=== PATIENT | female | born 1955 | race African-American/Black ===

== ENCOUNTER 2019-04-05 12:08 | Inpatient (IN) ==
[~2019-04-05 12:08] MED LIST: D50W SYRINGE IV ONE
[2019-04-05 13:23] LABS: BASO# 0.01 X1000 (0.0-0.2); BASO% 0.1 % (0.0-0.8); EOS# 0.07 X1000 (0.0-0.7); EOS% 0.8 % (0.0-10.0); HEMATOCRIT 39.1 % (37.0-47.0); HEMOGLOBIN 12.4 g/dL (12.0-16.0); IMM GRAN# 0.02 X1000 (0.0-0.04); IMM GRAN% 0.2 % (0.0-0.5); LYMPH# 1.46 X1000 (1.2-3.4); LYMPH% 17.5 % (20.5-51.1); MCH 29.9 PG (27-31); MCHC 31.7 g/dL (33-37); MCV 94.2 FL (81-99); MONO# 0.56 X1000 (0.11-0.59); MONO% 6.7 % (1.7-9.3); MPV 10.1 FL (7.4-10.4); NEUT# 6.24 X1000 (1.4-6.5); NEUT% 74.7 % (42.2-75.2); PLT 258 X1000 (130-400); RBC 4.15 XMIL (4.2-5.4); RDW 13.4 % (11.5-14.5); WBC 8.36 X1000 (4.8-10.8)
[2019-04-05 13:57] LABS: AGAP 11; ALBUMIN 4.3 g/dL (3.5-5.0); ALKALINE PHOSPHATASE 156 U/L (32-104); BUN 8 mg/dL (8-22); CALCIUM 9.2 mg/dL (8.8-10.2); CHLORIDE 104 mmol/L (98-107); COSMO 279; CREATININE 0.8 mg/dL (0.5-0.9); ESTIMATED GFR > 60; GLUCOSE 126 mg/dL (70-104); GOT 30 U/L (10-30); GPT 33 U/L (10-36); POTASSIUM 4.3 mmol/L (3.5-5.1); SODIUM 140 mmol/L (136-145); TCO2 25 mmol/L (25-35); TOTAL PROTEIN 7.6 g/dL (6.3-8.3)
[2019-04-05 14:22] LABS: BILIRUBIN URINE NEGATIVE (NEGATIVE); BLOOD URINE NEGATIVE (NEGATIVE); KETONE URINE NEGATIVE (NEGATIVE); LEUKOCYTES URINE 1+ (NEGATIVE); NITRITE URINE NEGATIVE (NEGATIVE); PROTEIN URINE NEGATIVE (NEGATIVE); SP GRAVITY URINE 1.005; UROBILINOGEN URINE NORMAL
[2019-04-05 14:23] LABS: CLARITY CLEAR (CLEAR); COLOR YELLOW
[2019-04-05 14:29] LABS: URINE BACTERIA 1+ /HFP; URINE CAST NONE SEEN /LPF; URINE CRYSTAL NONE SEEN /HPF; URINE EPITHELIAL CELLS >10 /HPF (<10); URINE SOURCE CLEAN CATCH; URINE YEAST NONE SEEN /HPF
[2019-04-05] MEDS ORDERED: ROCEPHIN 1 GM in NS 50 ML IV ONE (14:43)
--- NOTE | 2019-04-05 14:43 | PROVIDER DOCUMENTATION ---
This chart was entered by Chelsea Feldman Scribe, acting as scribe for Augustin Rosa MD. HPI-General Adult - General Stated Complaint: LOW BLOOD SUGAR Time Seen by Provider: 04/05/19 12:09 Source: patient, EMS ([facility]) Unable to obtain history due to:: altered Allergies/Adverse Reactions: Patient Allergies Allergy/AdvReac Type Severity Reaction Status Date / Time No Known Allergies Allergy Verified 01/18/18 18:17 Home Medications: Home Medication List Medication Instructions Recorded Confirmed Last Taken Type Famotidine 20 mg PO QAM 01/18/18 04/05/19 01/18/18 History Glimepiride 4 mg PO BID 01/18/18 04/05/19 01/18/18 History Insulin Glargine [Lantus] 40 unit SUBQ QAM 01/18/18 04/05/19 01/18/18 History Insulin Glargine [Lantus] 40 unit SUBQ QHS 01/18/18 04/05/19 01/23/18 21:00 History 40 UNIT Magnesium [Mag-Tab Sr] 84 mg PO QAM 01/18/18 04/05/19 01/18/18 History Omeprazole 40 mg PO QAM 01/18/18 04/05/19 01/18/18 History PRAVAstatin [Pravachol] 40 mg PO QHS 01/18/18 04/05/19 1 Day Ago History ~01/17/18 - History of Present Illness -Gen Adult Nature of Presenting Problems: 63 yobf presents to the ed via ems ([facility]) and sts call came in as unresponsive. when ems aos sts pt was "coming around" ems sts initial FSBG 42 was given oral glucose and ems sts second check was 76. ems sts pt was given peanut butter at [facility] but unsure when adela to pt being unresponsive. pt on exam has FSBG less then 20. pt is slow to answer questions and is lethargic on exam. pt does sts she took her insulin this morning but did not eat breakfast. pt denies pain. per ems pt was brought to [facility] er yesterday for same complaint and dc this morning early. when checked did not see where pt was seen yesterday or dc this morning Location of Pain/Injury: reports: none Quality of Pain: reports: none Severity: reports: moderate Onset/Duration: reports: just prior to arrival Timing: reports: still present, improving (pt is lethargic and no longer unresponsive) Context/Activities at Onset: reports: light activity Modifying Factors: improves with: other (oral glucose) Associated Symptoms: reports: fatigue, malaise, weakness. denies: back/neck pa in, chest pain, headaches, nausea, shortness of breath, vomiting Similar Symptoms Previously?: Yes (IDDM) Recently seen or treated by another doctor?: Yes (seen in [facility] er yesterday per ems) - Diabetes Related Context Context: reports: low blood sugar, change in mental status, unresponsive Review of Systems - Adult - REVIEW OF SYSTEMS - ADULT Constitutional: reports: see HPI, kerwin Eyes: reports: no symptoms reported Ears, Nose, Mouth & Throat: reports: no symptoms reported Cardiovascular: denies: chest pain, palpitations Respiratory: denies: cough, shortness of breath, wheezing Gastrointestinal: denies: diarrhea, nausea, vomiting Genitourinary: reports: no symptoms reported Musculoskeletal: denies: back pain, neck pain Integumentary: reports: no symptoms reported Neurological: denies: dizziness/vertigo, headache/migraines Psychiatric: reports: no symptoms reported Endocrine: reports: no symptoms reported Hematologic/Lymphatic: reports: no symptoms reported Allergic/Immunologic: reports: no symptoms reported All Other Systems: Reviewed and Negative Past History - Adult - PAST MEDICAL HISTORY-ADULT Review of Records: reports: Old Records Reviewed, Nursing Assessment Review, Medications Reviewed, Social history reviewed & non-contributory. Major Childhood Illnesses: reports: denies history Cardiovascular: reports: HTN, hyperlipidemia Respiratory: reports: denies history Gastrointestinal: reports: GERD Obstetrical/Gynecological: reports: denies history Genitourinary: reports: denies history Musculoskeletal: reports: denies history Hand Dominance: Right Handed Neurological: reports: denies history Psychiatric: reports: denies history Endocrine/Immune: reports: Diabetes Diabetes Type: Type 2 Diabetes controlled by:: Insulin Dependent Other Conditions: reports: denies history - PRIOR SURGERIES/PROCEDURES Surgical/Procedure History: reports: reviewed, not pertinent - IMMUNIZATION STATUS Childhood Immunizations: See Nurse Assessment Flu Vaccine: See Nurse Assessment - FAMILY HISTORY Family History: reviewed, not pertinent - SOCIAL HISTORY Smoking: denies Substance Use: denies Living Situation: family Physical Exam-General - PHYSICAL EXAM-ADULT Initial Vital Signs Reviewed: Yes - CONSTITUTIONAL General Appearance: lethargic, slow to respond - EYES Eyes: PERRL/EOMI, pink conjunctivae - HEAD, EARS, NOSE, MOUTH & THROAT HENMT: moist mucous membranes - NECK Neck: full range of motion, normal inspection - RESPIRATORY Respiratory: chest non-tender, lungs clear, normal breath sounds - CARDIOVASCULAR Cardiovascular: normal peripheral pulses, regular rate, rhythm - CHEST (BREASTS) Chest/Breast: deferred - GASTROINTESTINAL (ABDOMEN) Abdominal Exam: normal bowel sounds, non tender, soft - GENITOURINARY Female Genitalia/Pelvic Exam: deferred Rectal Exam: deferred Hemoccult Exam: deferred - LYMPHATIC Lymphatic: no adenopathy - MUSCULOSKELETAL Back Exam: normal inspection, no CVA tenderness, no vertebral tenderness Extremity: normal inspection, pelvis stable - SKIN Integumentary: normal color, normal turgor, diaphoresis - PSYCHIATRIC Psych/Mental Status: other (pt when she wakes is a/o x3 but quickly goes back to sleep) Progress - PLAN OF CARE/RESULTS Progress/Plan/Lab Results: Orders Category Date Time Status FSBS [Finger Stick Blood Sugar (ED)] DIRECTED Care 04/05/19 12:05 Active CBC WITH ELECTRONIC DIFF [HEME] Stat Lab 04/05/19 12:05 Uncollected COMPREHENSIVE METABOLIC PANEL [CHEM] Stat Lab 04/05/19 12:[address] W/POSS RFLX CULT [URINALYSIS] Stat Lab 04/05/19 12:05 Uncollected Result Diagrams: 04/05/19 13:00 04/05/19 13:00 - REASSESSMENT Reassessment #1 Time Reassessed: 13:18 (pt is feeling much better and is a/o x4) Status: improving Reassessment Comment: pt has family at bedside Reassessment #2 Time Reassessed: 13:55 (FSBG 126) Status: improving - CONSULTS/PCP/HOSPITALIST Notification #1 *Consult/PCP/Hospitalist*: hospitalist dr kendall Time Discussed: 14:38 Consult Disposition: Admit Departure - Departure Date of Disposition Decision: 04/05/19 Time of Disposition Decision: 14:40 DIAGNOSIS: Hypoglycemia, UTI (urinary tract infection) Disposition: ADMITTED INPATIENT 09 Certified Medical Emergency: Emergent Condition: Stable Referrals and Follow-Ups: Bia Simmons [Primary Care Provider] - - Critical Care Note This patient required my direct & personal management of CC.: Yes Total Time (mins): 34 Critical Care Statement: This patient required my direct personal management to treat or rule out processes, the absence of which, could potentiallly result in sudden, clinically significant life or limb threatening deterioration. Attestation - Physician/ KIRAN Attestation Patient care was provided by Advanced Practice Provider:: No The physician spent face to face time with patient:: Yes Advanced Practice Provider documentation review:: Supervising physician onsite and consulted in the evaluation and care of this patient. The physician did have a face to face encounter with the patient. This chart was documented by the indicated scribe, (Chelsea Feldman Scribe) and accurately reflects the services I performed and decisions made by me, Augustin Rosa MD, as attested by the provider's signature.
[2019-04-05] MEDS ORDERED: ZOFRAN IV PRN (15:26)
[2019-04-05] MEDS ORDERED: TYLENOL PO PRN (15:26)
[2019-04-05] MEDS ORDERED: D50W SYRINGE IV ONE (15:30)
--- NOTE | 2019-04-05 19:52 | HISTORY AND PHYSICAL ---
PRIMARY CARE PROVIDER: Dr. Bia Simmons. CHIEF COMPLAINT: Hypoglycemia. HISTORY OF PRESENT ILLNESS: Ms. Rivera is a 63-year-old female who carries a past medical history of hypertension, hyperlipidemia, and diabetes mellitus type 2 diagnosed 1 year ago. She reports that she has been taken her insulin as it was prescribed to her. She states that she is eating 3 meals a day; however, she eats about half of what she used to when she was first initiated on insulin. She came to the ED earlier in the morning with a blood glucose level less than 25. She came around after receiving some D50 and was discharged back home. She came back home, she took her morning insulin and then went to the [facility] and did not eat breakfast or lunch because she was "too busy." She once again became lethargic. There is some question of decreased responsiveness. When EMS arrived on the scene, her blood glucose at that time was less than 20. She was given oral glucose and peanut butter, and brought to the ED. Upon arrival there her blood glucose was 20. She was given another ampule of D50 and given a Coke and lunch. Blood glucoses have now been hanging around the 120s. She is currently awake and oriented, follows commands and answers all questions. PAST MEDICAL HISTORY: 1. Hypertension. 2. Hyperlipidemia. 3. Diabetes mellitus type 2, diagnosed 1 year ago. PAST SURGICAL HISTORY: Denies. FAMILY HISTORY: Denies any coronary artery disease, diabetes or cancer. SOCIAL HISTORY: She is not . She has 2 children. Denies any tobacco, alcohol or illicit drug use. REVIEW OF SYSTEMS: Twelve-point review of systems completely negative except for those mentioned in HPI. PHYSICAL EXAMINATION: VITAL SIGNS: Temperature is 97.7 degrees, heart rate 58, respirations 19, blood pressure 136/79, O2 is 97% on room air. GENERAL: Ms. Rivera is a pleasant 63-year-old female who looks older than her stated age, sitting up on the stretcher in no acute distress. HEENT: Atraumatic, normocephalic. PERRL. Poor dentition. CARDIOVASCULAR: S1, S2 appreciated. No murmurs, gallops or rubs noted. RESPIRATORY: Lung sounds clear bilaterally. GASTROINTESTINAL: Soft, nontender, nondistended. Positive bowel sounds x4 quadrants. EXTREMITIES: Negative for edema. NEUROLOGIC: No focal deficits noted. DIAGNOSTIC DATA: None. LABORATORY DATA: White count 8, hemoglobin and hematocrit 12 and 39, platelet count is 258,000. Sodium 140, potassium 4.3, BUN 8, creatinine 0.8. Initial blood glucose 20; she has since had 123, 92 and 126. Bacteria 1+ in her urinalysis. ASSESSMENT AND PLAN: 1. Hypoglycemia in a patient with diabetes mellitus type 2. The patient reports that she has been taking her normal amount of insulin and has only been eating half of what she used to consume. We will check hemoglobin A1c. Place her on a hypoglycemia protocol. We will initiate a D5 drip if we cannot keep her blood glucoses up. We will do frequent blood glucose checks every 1 hour x4, every 2 hours x4, then every 4 hours x4 for the remainder. 2. Diabetes mellitus type 2. We will hold her insulin for now and oral medications. Check hemoglobin A1c. Put her on a regular diet for now. 3. Hypertension. Continue home medications. 4. Hyperlipidemia. Continue statin. 5. Probable urinary tract infection. She was initiated on intravenous Rocephin. We will continue with that and await urine culture. 6. Further recommendations to follow physician evaluation, laboratory and diagnostic data. Dictated by BERNARDA Cardenas for Alvarez Nvearez MD cc: MD Bia Haji MD
[2019-04-05] MEDS ORDERED: D50W SYRINGE ONE (21:23)
[2019-04-05] MEDS: PRAVACHOL PO SCH (21:41)
--- NOTE | 2019-04-06 00:23 | HISTORY AND PHYSICAL ---
ADDENDUM: CHIEF COMPLAINT: Hypoglycemia. HISTORY OF PRESENT ILLNESS: The patient is a 63-year-old female who actually was seen in the ER with low blood sugar issues. She was told to hold her glipizide. Unfortunately, she did not do this. She re-presented to the ER with hypoglycemia. She has not been eating well, but she has still been taking the same amount of sulfonylurea. PLAN: We are going to admit her to the hospital. She is currently being treated in the emergency room with D5W and is improving. We will watch her overnight. Hopefully if symptoms improve she can be discharged home. cc: Alvarez Nevarez MD
[2019-04-06] MEDS: PRILOSEC PO SCH ×2 (05:44→06:22)
[2019-04-06 06:21] LABS: BASO# 0.01 X1000 (0.0-0.2); BASO% 0.2 % (0.0-0.8); EOS# 0.15 X1000 (0.0-0.7); EOS% 2.4 % (0.0-10.0); HEMATOCRIT 34.5 % (37.0-47.0); HEMOGLOBIN 10.8 g/dL (12.0-16.0); IMM GRAN# 0.01 X1000 (0.0-0.04); IMM GRAN% 0.2 % (0.0-0.5); LYMPH# 2.17 X1000 (1.2-3.4); LYMPH% 34.9 % (20.5-51.1); MCH 29.8 PG (27-31); MCHC 31.3 g/dL (33-37); MCV 95.3 FL (81-99); MONO# 0.41 X1000 (0.11-0.59); MONO% 6.6 % (1.7-9.3); MPV 10.2 FL (7.4-10.4); NEUT# 3.47 X1000 (1.4-6.5); NEUT% 55.7 % (42.2-75.2); PLT 247 X1000 (130-400); RBC 3.62 XMIL (4.2-5.4); RDW 13.8 % (11.5-14.5); WBC 6.22 X1000 (4.8-10.8)
[2019-04-06 06:43] LABS: CALCIUM 8.8 mg/dL (8.8-10.2); MAGNESIUM 1.7 mg/dL (1.5-2.7); POTASSIUM 3.9 mmol/L (3.5-5.1)
[2019-04-06 06:59] LABS: HEMOGLOBIN A1C 6.7 % (4.8-6.0)
[2019-04-06] MEDS: MAG-OX PO SCH (08:44)
[2019-04-06] MEDS: ROCEPHIN 1 GM in NS 50 ML IV SCH ×2 (14:50→15:17)
[2019-04-06] MEDS: PRAVACHOL PO SCH (20:27)
--- NOTE | 2019-04-07 01:28 | PROGRESS NOTE ---
DATE: 04/06/2019 SUBJECTIVE: Patient notes that she is starting to feel better. She has not really eaten breakfast yet this morning. Denies any fevers or chills. OBJECTIVE: Vital signs: Temperature 97.8 degrees, pulse 89, respiratory 18, BP 111/62. General: Patient is awake, very pleasant. She is in no distress. HEENT: Normocephalic. Neck: Supple. Cardiovascular: Regular rate. No murmurs. Chest: Clear, nonlabored. Extremities: Moves all extremities. Neurologic: No changes. Skin: Warm and dry. No rashes. ASSESSMENT: 1. Diabetes with recent hypoglycemia, iatrogenically caused. Patient has had a marked decrease in her overall appetite, but has still been taking her same medications. Her blood sugars actually are improved, they were 29 on admit, currently 137 to 149, but she has not restarted any of her blood sugar medications. Therefore, we are going to keep her in the hospital today. Restart her diet and follow. We will adjust her blood sugar medications if needed. 2. Hypertension. 3. Hyperlipidemia. cc: Alvarez Nevarez MD
[2019-04-07] MEDS: PRILOSEC PO SCH (06:04)
[2019-04-07 07:27] VITALS: BP 110/56
[2019-04-07] MEDS ORDERED: MORPHINE IV ONE (08:20)
[2019-04-07] MEDS ORDERED: LANTUS INSULIN SUBQ SCH (09:00)
[2019-04-07] MEDS: MAG-OX PO SCH (09:53)
--- NOTE | 2019-04-07 10:04 | DISCHARGE SUMMARY ---
ADMISSION DATE: 04/05/2019 DISCHARGE DATE: 04/07/2019 CONSULTATIONS: None. PROCEDURES: None. DISCHARGE DIAGNOSIS: 1. Diabetes mellitus with recent hypoglycemia iatrogenically caused. The patient reports an overall decrease in her appetite and still taking the same amount of her diabetes medications. Her blood sugars have improved throughout her hospital course. She was slowly initiated back on her medications with adjustments and will be discharged home on those adjustments and follow up with her primary care Dr. Bia Simmons. 2. Hypertension, stable. 3. Hyperlipidemia. HOSPITAL COURSE: Briefly, Ms. Rivera is a 63-year-old -[place] female who carries a past medical history of hypertension, hyperlipidemia, and diabetes mellitus type 2 diagnosed a year ago. She reports she had been taking her insulin and p.o. medication as prescribed. She states that she has been eating her 3 meals per day, however, she eats about half the amount that she did when she first started taking her medications. She had reported to the ED early in the morning with blood glucose level less than 25. After receiving some D50, her blood sugar came back up. She was feeling better, was discharged home. She went home, took her morning insulin, went to the [facility], did not eat breakfast or lunch because she was "too busy." She then became very lethargic. There was some question of decreased responsiveness. EMS was called and her blood glucose level at that point was 20. She was given some oral glucose and peanut butter and brought to the ED where her blood glucose still remained in the 20s. She was given another amp of D50, a coke, and lunch, and her blood sugars came up to around 120s. We admitted her to the hospital, watched her for 2 days, and initiated her back on some of her diabetic medications at a lower rate. She has tolerated that well and will be discharged home today to follow up with her PCP. VITAL SIGNS: Temperature is 98.5, heart rate 81, respirations 12, blood pressure 110/56, O2 is 100% on room air. DISCHARGE DIET: Regular. DISCHARGE MEDICATIONS: 1. Pravachol 40 mg p.o. at bedtime. 2. Pepcid 20 mg p.o. q.a.m. 3. Magnesium 84 mg p.o. q.a.m. 4. Prilosec 40 mg p.o. q.a.m. 5. Lantus 20 units subcutaneously q.a.m. FOLLOWUP: Ms. Rivera is being discharged back home. She needs to follow up with her primary care provider, Dr. Bia Simmons, within the next 1-2 weeks. She has been educated on her new diabetic regimen. She can return to the ED or call 911 for any worsening symptoms. Dictated by BERNARDA Cardenas for Alvarez Nevarez MD cc: MD Bia Haji MD
--- NOTE | 2019-04-08 14:51 | DISCHARGE SUMMARY ---
ADMISSION DATE: 04/05/2019 DISCHARGE DATE: 04/07/2019 ADDENDUM: SUBJECTIVE: Patient will be discharged home. Full note dictated and discussed with nurse practitioner. Patient currently is awake, alert. She is in no distress. She is actually eating breakfast. I am going to discharge her home, hold her glipizide. We will decrease her Lantus from 20 units twice daily to 20 units once daily. She will follow up outpatient with primary care. Currently her blood sugars are in the low 200 range before treatment this morning. cc: Alvarez Nevarez MD
== END 2019-04-07 11:41 | disposition home or self-care (01) | DRG 639 ==
LOC: SUPCPDRO → P.ED 12:08 → P.MEDSURG 16:36
PROVIDERS: ATTEND Family Medicine